=== PATIENT | male | born 1945 | race American Indian/Alaskan Native ===

== ENCOUNTER 2020-12-01 12:13 | Outpatient (CLI) | payer MEDICARE ==
--- NOTE | 2020-12-01 13:41 | XRay Report ---
RIGHT HIP 3 VIEWS INDICATION / CLINICAL INFORMATION: PAIN IN RIGHT HIP COMPARISON: Pelvis radiograph from 08/30/2016. FINDINGS: BONES and JOINT(S): The bones are demineralized with evidence of remote trauma to the right hip/aceta bulum, status post internal fixation of the right acetabulum that appears unremarkable. A left hip ar throplasty is unremarkable as seen. No acute fracture or dislocation is identified. There is moderate lower lumbar spondylosis. SOFT TISSUES: Prostate brachytherapy seeds are noted without other significant abnormalities. ADDITIONAL FINDINGS: None. IMPRESSION: 1. No acute findings. 2. Additional findings as above. Signer Name: Manav Cornejo MD Signed: 12/01/2020 1:37 PM Workstation Name: [id number]
== END 2020-12-01 12:14 | disposition home or self-care (01) ==
LOC: XRAY 12:13
PROVIDERS: ATTEND Orthopaedic Surgery
DX: M25.551 Pain in right hip (principal); M47.816 Spondylosis without myelopathy or radiculopathy, lumbar region; Z96.641 Presence of right artificial hip joint